=== PATIENT | female | born 1930 | race Caucasian/White ===

== ENCOUNTER 2016-06-04 14:19 | Emergency (ER) | payer OTHER ==
[~2016-06-04] VITALS: Ht 170.2 cm; Wt 68.0 kg
--- NOTE | ~2016-06-04 | EKG ---
[place] [address] [facility] [place] [address] ELECTROCARDIOGRAM REPORT Name: RUFUS HUMPHREYS Room #: MONO Thorpe#: [id number] Admission: 06/04/16 Attend Phys: Discharge: 06/04/16 Date of : 34 Report #: [id number] THIS REPORT FOR: //name// [facility] ED Test Date: 2016-06-04 Test Time: 15:06:57 Pat Name: RUFUS HUMPHREYS Department: Room: Gender: F [employer]: KENNEDY : 1930 Requested By: Noel Henderson Order Number: [id number] MD: Manuel Lizarraga Measurements Intervals [place] Rate: 63 P: 26 MS: 168 QRS: 11 QRSD: 92 T: 37 QT: 423 QTc: 434 Interpretive Statements Sinus rhythm Nonspecific ST segment abnormality No previous ECG available for comparison Electronically Signed On 06-05-2016 7:23:43 CDT by Manuel Lizarraga [email or web address] <ELECTRONICALLY SIGNED> By: Manuel Lizarraga MD, [facility] 06/05/16 0723 [id number] [id number] Manuel Lizarraga MD, FACC /EPI
[2016-06-04] MEDS ORDERED: DIFLUCAN200 MG PO (14:34)
[2016-06-04 14:59] LABS: ABSOLUTE NEUTROPHILS 4.3 thou/uL (1.4-8.2); BASOPHILS 0.7 % (0.0-2.0); EOSINOPHILS 3.2 % (0.0-3.0); HEMATOCRIT 34.2 % (37.0-47.0); HEMOGLOBIN 11.5 gm/dL (12.0-15.0); LYMPHOCYTES 14.3 % (24.0-44.0); MANUAL DIFF NO; MCH 28.9 pg (26.0-34.0); MCHC 33.6 g/dL (28.0-37.0); MONOCYTES 8.5 % (1.0-8.0); PLATELET COUNT 335 thou/uL (150-400); POLYS 73.3 % (36.0-66.0); RBC 3.98 mil/uL (4.20-5.00); RDW 13.7 % (10.5-14.5); WBC 5.8 thou/uL (4.0-11.0)
[2016-06-04 15:04] LABS: ANION GAP 9 mmol/L (7-16); BUN 51 mg/dL (7-18); CALCIUM 9.3 mg/dL (8.5-10.1); CHLORIDE 92 mmol/L (98-107); CO2 27 mmol/L (21-32); CREATININE 1.8 mg/dL (0.6-1.3); GLUCOSE 117 mg/dL (70-99); POTASSIUM 4.1 mmol/L (3.5-5.1); SODIUM 128 mmol/L (136-145)
[2016-06-04 15:17] LABS: ALBUMIN 3.8 g/dL (3.4-5.0); ALKALINE PHOSPHATASE 62 U/L (46-116); MAGNESIUM 2.1 mg/dL (1.8-2.4); SGOT 25 U/L (15-37); SGPT 15 U/L (30-65); TOTAL BILIRUBIN 0.5 mg/dL (<0.1-1.0); TROPONIN-I < 0.04 ng/mL (<0.04-0.07)
[2016-06-04] MEDS ORDERED: VENTOLIN HFA 1818 GM INH (16:30)
[2016-06-04] MEDS ORDERED: DEXILANT60 MG PO (16:30)
[2016-06-04 17:18] VITALS: BP 129/54
== END 2016-06-04 17:19 | disposition home or self-care (01) ==
LOC: ER 14:19
PROVIDERS: Emergency Medicine
DX: R20.2 Paresthesia of skin (principal); T78.49XA Other allergy, initial encounter; X58.XXXA Exposure to other specified factors, initial encounter; I10 Essential (primary) hypertension